=== PATIENT | female | born 1985 | race African-American/Black ===

== ENCOUNTER 2022-11-23 21:03 | Emergency (ER) | payer OTHER ==
[2022-11-23] MEDS ORDERED: Acetaminophen/Codeine 30-300mg Tablet ONE (21:37)
[2022-11-23] MEDS ORDERED: methylPREDNISolone Sod Succ/PF 125 MG/2 ML VIAL ONE (21:37)
== END 2022-11-23 21:58 | disposition home or self-care (01) ==
LOC: BURERS 21:03
DX: L25.0 Unspecified contact dermatitis due to cosmetics (principal); I10 Essential (primary) hypertension
CPT/HCPCS: 96374; J2930